=== PATIENT | female | born 1960 | race Caucasian/White ===

== ENCOUNTER 2017-07-03 19:54 | Emergency (ER) | payer BC ==
[~2017-07-03] VITALS: Ht 165.1 cm; Wt 75.0 kg
[2017-07-03 20:49] LABS: HEMATOCRIT. 38.6 % (36.0-48.0); HEMOGLOBIN. 13.3 g/dL (12.0-16.0); MEAN CORPUSCULAR HEMOGLOBIN 29.6 pg (28.0-32.0); MEAN CORPUSCULAR VOLUME 85.6 fL (81.0-99.0); MEAN PLATELET VOLUME 10.9 fl (7.4-10.4); PLATELET 149 x1000/uL (130-400); RED BLOOD CELL COUNT 4.51 mill/uL (4.2-5.4); RED CELL DISTRIBUTION WIDTH 13.1 % (11.6-14.6)
[2017-07-03 20:50] LABS: CHLORIDE 108 mEq/L (98-107)
[2017-07-03 20:55] LABS: PROTHROMBIN TIME 10.8 sec (9.4-11.6)
[2017-07-03 20:59] LABS: CARBON DIOXIDE 24 mEq/L (21-32); TROPONIN I < 0.02 ng/mL (0.00-0.04)
[2017-07-03 21:04] LABS: ATYPICAL LYMPHOCYTES 1; PLATELET ESTIMATE NORMAL
[2017-07-03] MEDS ORDERED: HYDROCODONE/ACETAMINOPHEN 5/325MG TABLET PO ONE (21:30)
[2017-07-03 22:10] VITALS: BP 145/90
[2017-07-04 00:06] LABS: CLARITY URINE CLEAR (CLEAR); COLOR URINE YELLOW (YELLOW); GLUCOSE URINE NEGATIVE (NEGATIVE); KETONES URINE NEGATIVE (NEGATIVE); LEUKOCYTE ESTERASE URINE 3+ (NEGATIVE); NITRITE URINE NEGATIVE (NEGATIVE); OCCULT BLOOD URINE TRACE (NEGATIVE); PH URINE 5.5 (4.5-8.0); PROTEIN URINE NEGATIVE (NEGATIVE); UROBILINOGEN URINE 0.2 E.U./dL (0.2-1.0)
[2017-07-04 00:33] LABS: *AMPHETAMINES SCREEN URINE NEGATIVE (NEGATIVE); *BARBITURATES SCREEN URINE NEGATIVE (NEGATIVE); *BENZODIAZEPINES SCREEN URINE NEGATIVE (NEGATIVE); *COCAINE SCREEN URINE NEGATIVE (NEGATIVE); CANNABINOID URINE SCREEN NEGATIVE (NEGATIVE); METHADONE URINE SCREEN NEGATIVE (NEGATIVE); OPIATES URINE SCREEN NEGATIVE (NEGATIVE); PHENCYCLIDINE URINE SCREEN NEGATIVE (NEGATIVE)
== END 2017-07-04 00:15 | disposition left against medical advice (07) ==
LOC: ER 21:11
DX: R07.81 Pleurodynia (principal); D72.810 Lymphocytopenia; D72.821 Monocytosis (symptomatic); E88.09 Other disorders of plasma-protein metabolism, not elsewhere classified; D70.9 Neutropenia, unspecified; N39.0 Urinary tract infection, site not specified; D72.825 Bandemia; R11.2 Nausea with vomiting, unspecified; R31.9 Hematuria, unspecified; Z85.3 Personal history of malignant neoplasm of breast
CPT/HCPCS: 36415; 71010; 80053; 80305; 81001; 81003; 81025; 83036; 83880; 84484; 85025; 85610; 85651; 93005; 99285